=== PATIENT | female | born 1980 | race Caucasian/White ===

== ENCOUNTER 2018-05-27 07:51 | Emergency (ER) | payer MEDICAID ==
[~2018-05-27] VITALS: Ht 175.3 cm; Wt 81.6 kg
[2018-05-27 07:59] VITALS: Ht 175.3 cm; Wt 81.6 kg
[2018-05-27 08:55] VITALS: BP 139/98
== END 2018-05-27 09:00 | disposition home or self-care (01) ==
LOC: ED 07:51
DX: F11.23 Opioid dependence with withdrawal (principal); R19.7 Diarrhea, unspecified; R68.83 Chills (without fever); M79.1 Myalgia; I48.91 Unspecified atrial fibrillation; I10 Essential (primary) hypertension